=== PATIENT | female | born 1980 | race Caucasian/White ===

== ENCOUNTER 2022-10-02 16:14 | Emergency (ER) | payer OTHER ==
--- OUTSIDE RECORDS SUMMARY | 2022-10-02 16:17 | XMS REPORT | Continuity of Care Document ---
:1980 Author Organization [facility] t Address [address] [place] [address] Care Team Providers Name Role Phone Asked, No Pcp Primary Care Physician Unavailable Everett MCKAY, Brenda Gray Attending Clinician Payers Payer Name Policy Type Policy Number Effective Date Expiration Date S ource Problems This patient has no known problems. Allergies, Adverse Reactions, Alerts Allergy Allergy Status Severity Reaction(s) Onset Inactive Treating Comm ents Source Name Type Date Date Clinician Venom-Wa Propensi Active Anaphylaxis M ethodi sp ty to [address] adverse 00:00: Hospita reaction 00 l s to drug Social History Social Habit Start Date Stop Date Quantity Comments Source Gender identity 2022-07-30 Identifies as [facility] 08:22:[facility] female gender Hospital (finding) Sexual orientation 2022-07-30 [facility] 08:22[facility] Hospital History of tobacco Smokes tobacco [facility] use daily Hospital History of Social 2022-07-30 2022-07-[address] function 00:00:00 00:00:00 Hospital Alcohol Comment 2022-07-30 2022-07-30 Social Jewish 00:00:00 00:00:00 Hospital Cigarettes smoked 2022-07-30 2022-07-[address] current (pack per 00:00:00 00:00:00 Hospita l day) - Reported Tobacco use and 2022-07-30 2022-07-30 Smokeless tobacco [facility] exposure 00:00:00 00:00:00 non-user Hospital Alcohol intake 2022-07-30 2022-07-30 Current drinker [facility] 00:00:00 00:00:00 of [facility] (finding) Sex Assigned At [birth year] Jewish 00:00:00 00:00:00 Hospital Smoking Status Start Date Stop Date Source Smokes tobacco daily 2022-07-30 00:00:00 [facility] Medications Ordered Filled Start Stop Current Ordering Indication Dosage Frequency Signature Comments Components Source Medication Medication Date Date Medication? Clinician (SIG) Name Name lamoTRIgine Yes 150mg Q.5D Take 1.5 M ethodi (LaMICtal) 2-[address] 100 MG 13:59: (150 mg Hospita tablet 02 total) by l mouth 2 (two) times a day. lisdexamfet Yes 60mg QD Take 6 Meth louann amine 10 mg 2-[address] capsule 13:59: (60 mg Hospita 02 total) by l mouth daily. Max Daily Amount: 60 mg buprenorphi Yes 2mg [id number] Place 2 mg Methodi ne HCL -[id number] (SUBUTEX) 8 13:59: 3D tongue 3 Ho spita mg tablet, 02 (three) l sublingual times a day. lidocaine Yes Q.5D Insert 1 Meth louann HCl-hydroco [address] rtison ac 00:00: n into the Ho spita 3-0.5 % 00 rectum 2 l cream (two) times a day. ketoconazol 2022- No Q.5W Apply Meth louann e (Nizoral) 07-[address] 2 % shampoo 00:00: 05:59 2 (two) Ho spita 00 :00 times a l week for 7 days. Apply to damp skin, lather, leave on 5 minutes, and rinse Vital Signs Vital Name Observation Time Observation Value Comments Source Systolic blood 2022-07-30 13:21:38 156 mm[Hg] [facility] pressure Diastolic blood 2022-07-30 13:21:38 91 mm[Hg] [facility] pressure Heart rate 2022-07-30 13:21:38 91 /min [facility] Body temperature 2022-07-30 13:21:38 36.39 [facility] Respiratory rate 2022-07-30 13:21:38 18 /min [facility] Oxygen saturation in 2022-07-30 13:21:38 99 /min [facility] Arterial blood by Pulse oximetry Body height 2022-07-30 13:20:00 157.5 cm [facility] Body weight 2022-07-30 13:20:00 49.896 kg [facility] BMI 2022-07-30 13:20:00 20.12 kg/m2 [facility] Procedures Procedure Date / Time Performing Clinician Source Performed CT PELVIS W CONTRAST 2022-07-30 17:04:50 Rolan Bar [facility] HCG QUALITATIVE, SERUM 2022-07-30 15:09:00 Rolan Bar [facility] SCREEN COMPREHENSIVE METABOLIC 2022-07-30 15:09:00 Rolan Bar [facility] PANEL CBC WITH PLATELET AND 2022-07-30 15:09:00 Rolan Bar [facility] DIFFERENTIAL ESTIMATED GFR 2022-07-30 15:09:00 Rolan Bar [facility] ospital Plan of Care Planned Activity Planned Date Details Comments Source Future Scheduled 2022-09-08 COVID-19 VACCINE (#1) [facility] Test 02:03:33 [code = COVID-19 VACCINE (#1)] Future Scheduled 2022-09-08 Pneumococcal Vaccine: [facility] Test 02:03:33 Pediatrics (0 to 5 Years) and At-Risk Patients (6 to 64 Years) (1 - PCV) [code = Pneumococcal Vaccine: Pediatrics (0 to 5 Years) and At-Risk Patients (6 to 64 Years) (1 - PCV)] Future Scheduled 2022-09-08 Hepatitis C screening [facility] Test 02:03:33 (procedure) [code = 331814995] Future Scheduled 2022-09-08 Screening for [facility] Test 02:03:33 malignant neoplasm of cervix (procedure) [code = 196336698] Future Scheduled 2022-09-08 BREAST CANCER [facility] Test 02:03:33 SCREENING [code = BREAST CANCER SCREENING] Future Scheduled 2022-09-08 INFLUENZA VACCINE [facility] Test 02:03:33 [code = INFLUENZA VACCINE] Encounters Start End Encounter Admission Attending Care Care Encounter Source Date/Time Date/Time Type Type Clinicians Facility Department ID 2022-07-30 2022-07-30 Emergency Brittney [id number] Methodi 07:24:00 13:59:00 Brenda Gray [id number] [id number] Hospit a .[id number] l .8 2022-07-30 2022-07-[address] [facility] [id number] [address] [place] 00:00:00 00:00:[address] Results This patient has no known results.
--- NOTE | 2022-10-02 18:00 | RAD REPORT ---
EXAM DESCRIPTION: RAD - Wrist Left 3 View - 10/02/2022 5:54 pm CLINICAL HISTORY: Pain;Swelling Pain COMPARISON: <Comparisons> FINDINGS: No fracture or dislocation seen. No foreign body or other soft tissue abnormality. IMPRESSION: Negative examination.
[2022-10-02] MEDS ORDERED: KETOROLAC 30 MG/ML INJ ONE (18:07)
[2022-10-02] MEDS ORDERED: CYCLOBENZAPRINE 10 MG TAB ONE (18:07)
--- NOTE | 2022-10-02 18:11 | EDPHYS ---
Physician Documentation [facility] Name: Elena Simeon Age: 42 yrs Sex: Female : 1980 Arrival Date: 10/02/2022 Time: 16:14 Bed IW3 Private MD: ED Physician Werner Castillo HPI: 10/02 16:35 This 42 yrs old Female presents to ER via Ambulatory with complaints of Wrist Pain. jh7 16:35 The patient or guardian reports decreased range of motion, pain, swelling. jh7 16:35 The complaints affect the. The complaints affect the left wrist diffusely. Onset: The jh7 symptoms/episode began/occurred 2 week(s) ago, and became persistent. Patient reports that she injured her wrist 2 weeks ago while moving. Reports pain with range of motion and tenderness.. 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 - Social history:: Smoking status: Patient reports the use of cigarette tobacco products, smokes one-half pack cigarettes per day, Patient uses alcohol, occasionally. street drugs, marijuana. ROS: 16:35 Constitutional: Negative for fever, chills, and weight loss, Neck: Negative for injury, jh7 pain, and swelling, Cardiovascular: Negative for chest pain, palpitations, and edema, Respiratory: Negative for shortness of breath, cough, wheezing, and pleuritic chest pain, Back: Negative for injury and pain, Skin: Negative for injury, rash, and discoloration, Neuro: Negative for headache, weakness, numbness, tingling, and seizure. 16:35 MS/extremity: Positive for pain, swelling, tenderness, of the left wrist. 16:35 All other systems are negative. Exam: 16:35 Constitutional: This is a well developed, well nourished patient who is awake, alert, jh7 and in no acute distress. Head/Face: Normocephalic, atraumatic. Neck: Trachea midline, no thyromegaly or masses palpated, and no cervical lymphadenopathy. Supple, full range of motion without nuchal rigidity, or vertebral point tenderness. No Meningismus. Cardiovascular: Regular rate and rhythm with a normal S1 and S2. No gallops, murmurs, or rubs. Normal PMI, no JVD. No pulse deficits. Respiratory: Lungs have equal breath sounds bilaterally, clear to auscultation and percussion. No rales, rhonchi or wheezes noted. No increased work of breathing, no retractions or nasal flaring. Abdomen/GI: Soft, non-tender, with normal bowel sounds. No distension or tympany. No guarding or rebound. No evidence of tenderness throughout. Back: No spinal tenderness. No costovertebral tenderness. Full range of motion. Skin: Warm, dry with normal turgor. Normal color with no rashes, no lesions, and no evidence of cellulitis. Neuro: Awake and alert, GCS 15, oriented to person, place, time, and situation. Sensory grossly intact. Normal gait. 16:35 Musculoskeletal/extremity: ROM: limited active range of motion due to pain, in the left wrist, Circulation is intact in all extremities. Sensation intact. L wrist: Positive Sundar's test, tenderness over the radial styloid. Vital Signs: 16:32 BP 113 / 71; Pulse 90; Resp 17; Temp 98.1; Pulse Ox 100% ; Weight 52.16 kg; Height 5 ap3 ft. 2 in. ; Pain 7/10; 18:33 BP 118 / 76; Pulse 84; Resp 18; Pulse Ox 100% ; mb9 16:32 Body Mass Index 21.03 (52.16 kg, 157.48 cm) ap3 16:32 Pain Scale: Adult ap3 MDM: 16:17 Patient medically screened. [facility] 18:15 Differential diagnosis: contusion, tendonitis, sprain, de Quervain's tenosynovitis. [facility] Data reviewed: vital signs, nurses notes, radiologic studies, plain films. I considered the following discharge prescriptions or medication management in the emergency department Medications were administered in the Emergency Department. See MAR. Independent interpretation of the following test(s) in the Emergency Department X-Ray: My interpretation is No fractures or dislocations. Care significantly affected by the following chronic conditions: Hypertension. Counseling: I had a detailed discussion with the patient and/or guardian regarding: the historical points, exam findings, and any diagnostic results supporting the discharge/admit diagnosis, to return to the emergency department if symptoms worsen or persist or if there are any questions or concerns that arise at home. Response to treatment: the patient's symptoms have mildly improved after treatment. ED course: Patient brought wrist brace from home and was advised to wear it until symptoms improve. 10/02 16:43 Order name: XRAY Wrist LEFT 3 view; Complete Time: 18:09 jh Administered Medications: 18:05 Drug: Ketorolac IM 30 mg Route: IM; Site: left deltoid; mb9 18:05 Drug: Cyclobenzaprine PO 10 mg Route: PO; mb9 Disposition: 10/03 17:14 Co-signature as Attending Physician, Werner Castillo MD I reviewed the patient's care rn provided by the Advanced Practice Provider and agree with the diagnosis and treatment plan. Disposition Summary: 10/02/22 18:10 Discharge Ordered Location: Home [facility] Problem: new jh7 Symptoms: have improved jh7 Condition: Stable jh Diagnosis - Radial styloid tenosynovitis [de Quervain] [facility] Followup: [facility] - With: Private Physician - When: 2 - 3 days - Reason: Recheck today's complaints Discharge Instructions: - Discharge Summary Sheet [facility] - De Quervain's Tenosynovitis [facility] Forms: - Medication Reconciliation Form [facility] - Thank You Letter [facility] Prescriptions: - Zanaflex 4 mg Oral Tablet - take 1 tablet by ORAL route every 8 hours As needed; 20 tablet; Refills: 0, jh7 Product Selection Permitted - Medrol (Bernardino) 4 mg Oral Tablets, Dose Pack - take 1 tablet by ORAL route as directed - follow package instructions; 1 jh7 packet; Refills: 0, Product Selection Permitted Signatures: Dispatcher [employer] Werner Soliz MD MD rn Prokisch, Amanda, RN RN [email or web address] Natalya Stephens FNP FNP [facility] Kiersten Antoine RN RN mb9 Corrections: (The following items were deleted from the chart) 10/02 19:05 16:35 This 42 yrs old Female presents to ER via Ambulatory with complaints of Wrist jh7 Pain. [facility]
--- NOTE | 2022-10-02 18:11 | ER ---
Nurse's Notes [facility] Name: Elena Simeon Age: 42 yrs Sex: Female : 1980 Arrival Date: 10/02/2022 Time: 16:14 Bed IW3 Private MD: Diagnosis: Radial styloid tenosynovitis [de Quervain] Presentation: 10/02 16:32 Chief complaint: Patient states: she injured her left wrist approx 2 weeks ago when ap3 moving. patient states the pain has gotten worse over the last two weeks instead of better so she came to the ER for further evaluation. Coronavirus screen: At this time, the client does not indicate any symptoms associated with coronavirus-19. Ebola Screen: No symptoms or risks identified at this time. Initial Sepsis Screen: Does the patient meet any 2 criteria? No. Patient's initial sepsis screen is negative. Does the patient have a suspected source of infection? No. Patient's initial sepsis screen is negative. Risk Assessment: Do you want to hurt yourself or someone else? Patient reports no desire to harm self or others. Onset of symptoms was September 18, 2022. 16:32 Method Of Arrival: Ambulatory ap3 16:32 Acuity: EM 4 ap3 Triage Assessment: 16:37 General: Appears in no apparent distress. Behavior is calm, cooperative, appropriate ap3 for age. Pain: Complains of pain in left wrist Pain currently is 7 out of 10 on a pain scale. Pain began 2 weeks ago. Neuro: Level of Consciousness is awake, alert, obeys commands, Oriented to person, place, time, situation. Cardiovascular: Patient's skin is warm and dry. Respiratory: Airway is patent Respiratory effort is even, unlabored, Respiratory pattern is regular, symmetrical. Derm: Reports pain. 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 - Social history:: Smoking status: Patient reports the use of cigarette tobacco products, smokes one-half pack cigarettes per day, Patient uses alcohol, occasionally. street drugs, marijuana. Screenin:38 Abuse screen: Denies threats or abuse. Nutritional screening: No deficits noted. ap3 Tuberculosis screening: No symptoms or risk factors identified. Assessment: 18:33 Reassessment: Patient and/or family updated on plan of care and expected duration. Pain mb9 level reassessed. Patient is alert, oriented x 3, equal unlabored respirations, skin warm/dry/pink. Patient states feeling better. Patient states symptoms have improved. Vital Signs: 16:32 BP 113 / 71; Pulse 90; Resp 17; Temp 98.1; Pulse Ox 100% ; Weight 52.16 kg; Height 5 ap3 ft. 2 in. ; Pain 7/10; 18:33 BP 118 / 76; Pulse 84; Resp 18; Pulse Ox 100% ; mb9 16:32 Body Mass Index 21.03 (52.16 kg, 157.48 cm) ap3 16:32 Pain Scale: Adult ap3 ED Course: 16:17 Patient arrived in ED. rg4 16:17 Natalya Stephens FNP [facility] 7 16:17 Werner Castillo MD is Attending Physician. jh7 16:34 Triage completed. ap3 16:37 Arm band placed on right wrist. ap3 17:55 XRAY Wrist LEFT 3 view In Process Unspecified. EDPR 18:33 Kiersten Antoine, DERIC is Primary Nurse. mb9 18:33 No provider procedures requiring assistance completed. Patient did not have IV access mb9 during this emergency room visit. Administered Medications: 18:05 Drug: Ketorolac IM 30 mg Route: IM; Site: left deltoid; mb9 18:05 Drug: Cyclobenzaprine PO 10 mg Route: PO; mb9 Outcome: 18:10 Discharge ordered by . 7 18:33 Discharged to home ambulatory. mb9 18:33 Condition: stable 18:33 Discharge instructions given to patient, Instructed on discharge instructions, follow up and referral plans. Demonstrated understanding of instructions, follow-up care, medications, Prescriptions given X 2. 18:33 Patient left the ED. mb9 Signatures: Dispatcher [employer] EDPR Rachel Feliciano rg4 Noemy Higgins RN RN ap3 Natalya Stephens FNP ACCOUNTS RECEIVABLE SUPERVISOR 7 Breneman, Lilli, RN RN mb9
[2022-10-02 19:26] VITALS: TEMP 98.1; O2SAT 100
[2022-10-02 19:28] VITALS: BP 118/76
== END 2022-10-02 18:33 | disposition home or self-care (01) ==
LOC: ER 16:14
DX: M65.4 Radial styloid tenosynovitis [de Quervain] (principal)
CPT/HCPCS: 96372; 99284

== ENCOUNTER 2022-12-04 | Emergency (ER) | payer OTHER ==
--- OUTSIDE RECORDS SUMMARY | 2022-12-04 00:03 | XMS REPORT | Continuity of Care Document ---
:[address] [facility] t Address [address] [place] [address] Care Team Providers Name Role Phone Asked, No Pcp Primary Care Physician Unavailable Everett MCKAY, Fabiana Gray Attending Clinician Payers Payer Name Policy Type Policy Number Effective Date Expiration Date S ource Problems This patient has no known problems. Allergies, Adverse Reactions, Alerts Allergy Allergy Status Severity Reaction(s) Onset Inactive Treating Comm ents Source Name Type Date Date Clinician Venom-Wa Propensi Active Anaphylaxis M ethodi sp ty to 2-20 st adverse 00:00: Hospita reaction 00 l s to drug Social History Social Habit Start Date Stop Date Quantity Comments Source Gender identity 2022-07-30 Identifies as [facility] 08:22:52 female gender Hospital (finding) Sexual orientation 2022-07-30 [facility] 08:22:52 Hospital History of tobacco Cigarette Smoker [facility] use Hospital History of Social 2022-07-30 2022-07-[address] function 00:00:00 00:00:00 Hospital Alcohol Comment 2022-07-30 2022-07-30 Social [facility] 00:00:00 00:00:00 Hospital Cigarettes smoked 2022-07-30 2022-07-[address] current (pack per 00:00:00 00:00:00 Hospita l day) - Reported Alcohol intake 2022-07-30 2022-07-30 Current drinker [facility] 00:00:00 00:00:00 of alcohol Hospital (finding) Tobacco use and 2022-07-30 2022-07-30 Smokeless tobacco [facility] exposure 00:00:00 00:00:00 non-user Hospital Sex Assigned At [birth year] Mu-Ism 00:00:00 00:00:00 Hospital Smoking Status Start Date Stop Date Source Smokes tobacco daily 2022-07-30 00:00:00 [facility] Medications Ordered Filled Start Stop Current Ordering Indication Dosage Frequency Signature Comments Components Source Medication Medication Date Date Medication? Clinician (SIG) Name Name lamoTRIgine 3-0 Yes 150mg Q.5D Take 1.5 M ethodi (LaMICtal) 2-[address] 100 MG 13:59: (150 mg Hospita tablet 02 total) by l mouth 2 (two) times a day. lisdexamfet 2023-0 Yes 60mg QD Take 6 Meth louann amine 10 mg 2-[address] capsule 13:59: (60 mg Hospita 02 total) by l mouth daily. Max Daily Amount: 60 mg buprenorphi 2023-0 [id number] 2 mg Method[facility] ne HCL 2-[id number] (SUBUTEX) 8 13:59: 3D tongue 3 Ho spita mg tablet, 02 (three) l sublingual times a day. lamoTRIgine 3-0 Yes 150mg Q.5D Take 1.5 M ethodi (LaMICtal) 2-[address] 100 MG 13:59: (150 mg Hospita tablet 02 total) by l mouth 2 (two) times a day. lisdexamfet 2023-0 Yes 60mg QD Take 6 Meth louann amine 10 mg 2-[address] capsule 13:59: (60 mg Hospita 02 total) by l mouth daily. Max Daily Amount: 60 mg buprenorphi 2023-0 Yes [address]mg Q.[id number] Place 2 mg Method[facility] ne HCL 2-[id number] (SUBUTEX) 8 13:59: 3D tongue 3 Ho spita mg tablet, 02 (three) l sublingual times a day. lidocaine 3-0 Yes Q.5D Insert 1 Meth louann HCl-hydroco 2-[address] rtison ac 00:00: n into the Ho spita 3-0.5 % 00 rectum 2 l cream (two) times a day. lidocaine Yes Q.5D Insert 1 Meth louann HCl-hydroco 07-[address] rtison ac 00:00: n into the Ho spita 3-0.5 % 00 rectum 2 l cream (two) times a day. ketoconazol 2022- No Q.5W Apply Meth louann e (Nizoral) 07-[address] 2 % shampoo 00:00: 05:59 2 (two) Ho spita 00 :00 times a l week for 7 days. Apply to damp skin, lather, leave on 5 minutes, and rinse ketoconazol 2022- No Q.5W Apply Meth louann e (Nizoral) 07-[address] 2 % shampoo 00:00: 05:59 2 (two) Ho spita 00 :00 times a l week for 7 days. Apply to damp skin, lather, leave on 5 minutes, and rinse Vital Signs Vital Name Observation Time Observation Value Comments Source Diastolic blood 2022-07-30 13:21:38 91 mm[Hg] [facility] pressure Heart rate 2022-07-30 13:21:38 91 /min [facility] Body temperature 2022-07-30 13:21:38 36.39 Mary [facility] Respiratory rate 2022-07-30 13:21:38 18 /min [facility] Oxygen saturation in 2022-07-30 13:21:38 99 /min [facility] Arterial blood by Pulse oximetry Systolic blood 2022-07-30 13:21:38 156 mm[Hg] [facility] pressure Body height 2022-07-30 13:20:00 157.5 cm [facility] Body weight 2022-07-30 13:20:00 49.896 kg [facility] BMI 2022-07-30 13:20:00 20.12 kg/m2 [facility] Procedures Procedure Date / Time Performing Clinician Source Performed CT PELVIS W CONTRAST 2022-07-30 17:04:50 Rolan Bar [facility] HCG QUALITATIVE, SERUM 2022-07-30 15:09:00 Rolan Bar [facility] SCREEN COMPREHENSIVE METABOLIC 2022-07-30 15:09:00 Rolan Bar [facility] PANEL CBC WITH PLATELET AND 2022-07-30 15:09:00 Rolan Bar [facility] DIFFERENTIAL ESTIMATED GFR 2022-07-30 15:09:00 Rolan Bar [facility] ospital Plan of Care Planned Activity Planned Date Details Comments Source Future Scheduled 2022-11-23 COVID-19 VACCINE (#1) [facility] Test 17:36:01 [code = COVID-19 VACCINE (#1)] Future Scheduled 2022-11-23 Pneumococcal Vaccine: [facility] Test 17:36:01 Pediatrics (0 to 5 Years) and At-Risk Patients (6 to 64 Years) (1 - PCV) [code = Pneumococcal Vaccine: Pediatrics (0 to 5 Years) and At-Risk Patients (6 to 64 Years) (1 - PCV)] Future Scheduled 2022-11-23 Hepatitis C screening [facility] Test 17:36:01 (procedure) [code = [id number]] Future Scheduled 2022-11-23 Screening for [facility] Test 17:36:01 malignant neoplasm of cervix (procedure) [code = [id number]] Future Scheduled 2022-11-23 BREAST CANCER [facility] Test 17:36:01 SCREENING [code = BREAST CANCER SCREENING] Future Scheduled 2022-11-23 INFLUENZA VACCINE [facility] Test 17:36:01 [code = INFLUENZA VACCINE] Future Scheduled 2022-09-08 COVID-19 VACCINE (#1) [facility] Test 02:03:33 [code = COVID-19 VACCINE (#1)] Future Scheduled 2022-09-08 Pneumococcal Vaccine: [facility] Test 02:03:33 Pediatrics (0 to 5 Years) and At-Risk Patients (6 to 64 Years) (1 - PCV) [code = Pneumococcal Vaccine: Pediatrics (0 to 5 Years) and At-Risk Patients (6 to 64 Years) (1 - PCV)] Future Scheduled 2022-09-08 Hepatitis C screening [facility] Test 02:03:33 (procedure) [code = [id number]] Future Scheduled 2022-09-08 Screening for [facility] Test 02:03:33 malignant neoplasm of cervix (procedure) [code = 392374064] Future Scheduled 2022-09-08 BREAST CANCER [facility] Test 02:03:33 SCREENING [code = BREAST CANCER SCREENING] Future Scheduled 2022-09-08 INFLUENZA VACCINE [facility] Test 02:03:33 [code = INFLUENZA VACCINE] Encounters Start End Encounter Admission Attending Care Care Encounter Source Date/Time Date/Time Type Type Clinicians Facility Department ID 2022-07-30 2022-07-30 Emergency [place], [id number] [id number] Methodi 07:24:00 13:59:00 Robbirandall Gray [id number] 3.430.2.7 Hospit a .3.009552 l .8 2022-07-30 2022-07-30 Emergency Eve[place], 1.2.840.1 [id number] [facility] 07:24:00 13:59:00 Fabiana Gray [id number] 3.430.2.7 Hospit a .[id number] l .8 Results This patient has no known results.
[2022-12-04] MEDS ORDERED: LEVETIRACETAM 500 MG/5 ML VIAL IV ONE (00:38)
[2022-12-04] MEDS ORDERED: NA CHLORIDE 0.9% 250 ML ONE (00:38)
[2022-12-04 01:06] LABS: Protime INR 0.84
[2022-12-04 01:17] LABS: Absolute Lymphocytes (CBC) 3.2 K/uL (0.7-4.9); Hematocrit 37.7 % (36.0-45.0); Lymphocytes % 38.7 % (15.3-44.8); MCV 89.6 fL (80-100); MPV 7.1 fL (7.6-11.3); RBC Red Blood Cell Count 4.21 M/uL (3.86-4.86)
[2022-12-04 01:28] LABS: ALT/SGPT 23 U/L (13-56); AST/SGOT 19 U/L (15-37); Albumin 3.5 g/dL (3.4-5.0); Alkaline Phosphatase 83 U/L (45-117); BUN Blood Urea Nitrogen 19 mg/dL (7-18); Bicarbonate 23 mEq/L (21-32); Bilirubin Total 0.2 mg/dL (0.2-1.0); Glomerular Filtration Rate 110 ml/min (=/>90); Glucose Level 93 mg/dL (74-106); Potassium 3.5 mEq/L (3.5-5.1); Protein, Total 6.8 g/dL (6.4-8.2); Sodium Level 143 mEq/L (136-145)
[2022-12-04 01:29] LABS: Bilirubin Direct < 0.1 mg/dL (0-0.2); Bilirubin Indirect, Calculated ND mg/dL (0.2-0.8)
--- NOTE | 2022-12-04 02:46 | ER ---
Nurse's Notes [facility] Name: Elena Simeon Age: 42 yrs Sex: Female : 1980 Arrival Date: 12/04/2022 Time: 00:00 Bed 16 Private MD: Diagnosis: Other seizures;Alcohol use, unspecified Presentation: 12/04 00:04 Chief complaint: EMS states: PT WAS FOUND BY FATHER [place] THE [facility] [place] rv SEIZURE. WAS ATTENDED EARLIER TODAY FOR SAME REASON AND REFUSED TO BE BROUGHT TO ED. WAS GIVEN 5MG VERSED INTRANASAL. POST ICTAL UPON ARRIVAL AT THE ED. Coronavirus screen: Vaccine status:. Ebola Screen: Patient negative for fever greater than or equal to 101.5 degrees Fahrenheit, and additional compatible Ebola Virus Disease symptoms Patient denies exposure to infectious person. Patient denies travel to an Ebola-affected area in the 21 days before illness onset. Initial Sepsis Screen: Does the patient meet any 2 criteria? No. Patient's initial sepsis screen is negative. Does the patient have a suspected source of infection? No. Patient's initial sepsis screen is negative. Risk Assessment: Do you want to hurt yourself or someone else? Unable to obtain. Onset of symptoms was December 04, 2022. 00:04 Method Of Arrival: EMS: [facility] rv 00:04 Acuity: EM 2 rv Triage Assessment: 00:06 General: Appears unkempt, Behavior is drowsy. Pain: Denies pain. Neuro: Level of rv Consciousness is confused, lethargic. Cardiovascular: Capillary refill < 3 seconds Rhythm is sinus rhythm. Respiratory: Airway is patent Respiratory effort is even, unlabored. Derm: Skin is intact. Historical: - Allergies: 00:06 Bees; rv - Home Meds: 00:06 Dilantin Oral [Active]; Metoprolol Tartrate Oral [Active]; Suboxone [Active]; rv - PMHx: 00:06 Hypertensive disorder; Seizure; rv - Immunization history:: Adult Immunizations unknown. - Social history:: Smoking status: unknown. Screenin:08 [facility] ED Fall Risk Assessment (Adult) History of falling in the last 3 months, rv including since admission Yes- fall prone (multiple falls) (3 pts) Confusion or Disorientation Yes (5 pts) Intoxicated or Sedated Yes (3 pts) Impaired Gait Yes (1 pt) Mobility Assist Device Used No (0 pt) Altered Elimination No (0 pt) Score/Fall Risk Level 3 or more points = High Risk Oriented to surroundings, Maintained a safe environment, Educated pt \T\ family on fall prevention, incl call for assistance when getting out of bed, Assessed \T\ reinforced patient's understanding of fall precautions, Provided non-skid footwear, Hourly rounding (assess needs \T\ fall precautionary measures) done, Used ambulatory aids as needed (educated on \T\ assisted with), Used gait belt as appropriate Implemented a Fall Risk Plan of Care, Apply high fall risk patient identification: yellow non skid footwear/ fall signage, Placed fall mat w/ non beveled edge next to bed, Activated bed/chair alarm, Remained w/in arm's length of patient and in sight while toileting, Offered frequent toileting (1:1 observation), Remained with patient while ambulating, Utilized family, sitter, or virtual running rigger as indicated. Abuse screen: Denies threats or abuse. Denies injuries from another. Nutritional screening: No deficits noted. Tuberculosis screening: No symptoms or risk factors identified. Vital Signs: 00:04 BP 103 / 66; Pulse 86; Resp 17; Temp 98.1; Pulse Ox 96% ; Weight 68.04 kg; Height 5 ft. rv 7 in. ; 00:04 Body Mass Index 23.49 (68.04 kg, 170.18 cm) rv ED Course: 00:04 Patient arrived in ED. rv 00:04 Jesus Christianson PA is PHCP. cp 00:04 Jesus Mendoza MD is Attending Physician. cp 00:06 Triage completed. rv 00:07 Arm band placed on right wrist. rv 00:08 Patient has correct armband on for positive identification. Placed in gown. Bed in low rv position. Call light in reach. Side rails up X2. Seizure precautions initiated. Client placed on continuous cardiac and pulse oximetry monitoring. NIBP monitoring applied. property assessment monitor on. 00:08 No provider procedures requiring assistance completed. rv 01:00 Inserted saline lock: 20 gauge in right forearm, using aseptic technique. Blood rv collected. 01:17 Jeet Claros, DERIC is Primary Nurse. rv 02:04 CT Head C Spine In Process Unspecified. EDMS 02:45 Titus Mejia MD is Referral Physician. cp 02:58 IV discontinued, intact, bleeding controlled, No redness/swelling at site. Pressure rv dressing applied. Administered Medications: 01:17 Drug: Keppra IV 1000 mg Route: IV; Rate: calculated rate; Site: right forearm; rv 02:57 Follow up: Response: No adverse reaction; IV Status: Completed infusion rv 02:57 Drug: Ketorolac IVP 15 mg Route: IVP; Site: right forearm; rv 02:57 Follow up: Response: Medication administered at discharge. rv 02:57 Drug: Acetaminophen PO 650 mg Route: PO; rv 02:57 Follow up: Response: Medication administered at discharge. rv Medication: 00:08 VIS not applicable for this client. rv Outcome: 02:45 Discharge ordered by . cp 02:57 Discharged to home ambulatory, with family. rv 02:57 Condition: good 02:57 Discharge instructions given to patient, Instructed on discharge instructions, follow up and referral plans. medication usage, Demonstrated understanding of instructions, follow-up care, medications, Prescriptions given X 1. 02:58 Patient left the ED. rv Signatures: Dispatcher [employer] EDNJ Jesus Christianson PA PA cp Vicente, Ronaldo, RN RN rv
--- NOTE | 2022-12-04 02:46 | EDPHYS ---
Physician Documentation [facility] Name: Elena Simeon Age: 42 yrs Sex: Female : 1980 Arrival Date: 12/04/2022 Time: 00:00 Bed 16 Private MD: ED Physician Jesus Mendoza HPI: 12/04 00:20 This 42 yrs old Female presents to ER via EMS with complaints of Seizure. cp 00:20 The patient presents with decreased responsiveness. Onset: The symptoms/episode cp began/occurred today. Possible causes: seizure, the patient has a known seizure history, reportedly noncompliant with seizure medications. 00:20 Associated signs and symptoms: Pertinent positives: agitation, confusion, Pertinent cp negatives: abdominal pain, chest pain. Current symptoms: In the emergency department the patient's symptoms have improved. Patient's baseline: Neuro: alert and fully oriented, Motor: no deficits, Ambulation: walks without assistance, Speech: normal. Patient given 5mg Versed by EMS prior to arrival. Historical: - Allergies: 00:06 Bees; rv - Home Meds: 00:06 Dilantin Oral [Active]; Metoprolol Tartrate Oral [Active]; Suboxone [Active]; rv - PMHx: 00:06 Hypertensive disorder; Seizure; rv - Immunization history:: Adult Immunizations unknown. - Social history:: Smoking status: unknown. ROS: 00:25 Constitutional: Negative for fever. cp 00:25 Cardiovascular: Negative for chest pain. cp 00:25 Respiratory: Negative for cough, wheezing. 00:25 Abdomen/GI: Negative for abdominal pain, vomiting, diarrhea, constipation. 00:25 Neuro: Positive for history of seizure. 00:25 All other systems are negative. Exam: 00:30 Constitutional: The patient appears non-diaphoretic, non-toxic, well developed, well cp nourished. 00:30 Head/Face: Normocephalic, atraumatic. cp 00:30 Eyes: Periorbital structures: appear normal, Pupils: equal, round, and reactive to light and accomodation, Conjunctiva: normal, no exudate, no injection, Sclera: no appreciated abnormality, Lids and lashes: appear normal, bilaterally. 00:30 ENT: External ear(s): are unremarkable, Ear canal(s): are normal, clear, TM's: dullness, bilaterally, Nose: is normal, Mouth: Lips: moist, Oral mucosa: pink and intact, moist, Posterior pharynx: is normal, airway is patent, no erythema, no exudate. 00:30 Neck: C-spine: vertebral tenderness, is not appreciated, crepitus, is not appreciated, ROM/movement: Meningeal signs: are not present, nuchal rigidity, is not appreciated. 00:30 Chest/axilla: Inspection: normal. 00:30 Cardiovascular: Rate: normal, Rhythm: regular. 00:30 Respiratory: the patient does not display signs of respiratory distress, Respirations: normal, no use of accessory muscles, no retractions, labored breathing, is not present, Breath sounds: are clear throughout, no decreased breath sounds, no stridor, no wheezing. 00:30 Abdomen/GI: Inspection: abdomen appears normal, Palpation: abdomen is soft and non-tender, in all quadrants. 00:30 Musculoskeletal/extremity: Exam is negative for decreased range of motion, deformity, injury. 00:30 Neuro: Mentation: somnolent. 03:12 ECG was reviewed by the Attending Physician. cp Vital Signs: 00:04 BP 103 / 66; Pulse 86; Resp 17; Temp 98.1; Pulse Ox 96% ; Weight 68.04 kg; Height 5 ft. rv 7 in. ; 00:04 Body Mass Index 23.49 (68.04 kg, 170.18 cm) rv MDM: 00:05 Patient medically screened. cp 00:45 Differential Diagnosis: electrolyte abnormality, alcohol intoxication, overdose, cp seizure, sepsis, UTI, volume depletion. 02:45 Data reviewed: vital signs, nurses notes, lab test result(s), EKG. cp 02:45 Consideration of Admission/Observation Escalation of care including cp admission/observation considered. I considered the following discharge prescriptions or medication management in the emergency department Medications were administered in the Emergency Department. See MAR. Care significantly affected by the following chronic conditions: seizure disorder. Counseling: I had a detailed discussion with the patient and/or guardian regarding: the historical points, exam findings, and any diagnostic results supporting the discharge/admit diagnosis, lab results, the need for outpatient follow up, a neurologist, to return to the emergency department if symptoms worsen or persist or if there are any questions or concerns that arise at home. ED course: Patient alert times 3, ambulating w/o assistance and requesting discharge. 12/04 00:12 Order name: Acetaminophen; Complete Time: 02:30 cp 12/04 02:30 Interpretation: Reviewed. 12/04 00:12 Order name: Basic Metabolic Panel; Complete Time: 02:30 cp 12/04 02:30 Interpretation: Normal except: CL 112; BUN 19; CA 8.3. cp 12/04 00:12 Order name: CBC with Diff; Complete Time: 02:30 cp 12/04 02:30 Interpretation: Normal except: MPV 7.1; EOSINOPHIL % 5.8. cp 12/04 00:12 Order name: ETOH Level; Complete Time: 02:30 cp 12/04 02:31 Interpretation: Abnormal: ETOH 215. cp 12/04 00:12 Order name: Hepatic Function; Complete Time: 02:30 cp 12/04 00:12 Order name: PT-INR; Complete Time: 02:30 cp 12/04 00:12 Order name: Ptt, Activated; Complete Time: 02:30 cp 12/04 00:12 Order name: Salicylate; Complete Time: 02:30 cp 12/04 00:21 Order name: CT Head C Spine cp 12/04 00:12 Order name: EKG; Complete Time: 00:13 cp 12/04 00:12 Order name: EKG - Nurse/Tech; Complete Time: 00:27 cp 12/04 00:12 Order name: IV Saline Lock; Complete Time: 01:18 cp 12/04 00:12 Order name: Labs collected and sent; Complete Time: 01:18 cp EC:12 Rate is 82 beats/min. Rhythm is regular. [place] interval is normal. QRS interval is normal. cp QT interval is prolonged. T waves are Inverted in lead aVR. Interpreted by me. Reviewed by me. Administered Medications: 01:17 Drug: Keppra IV 1000 mg Route: IV; Rate: calculated rate; Site: right forearm; rv 02:57 Follow up: Response: No adverse reaction; IV Status: Completed infusion rv 02:57 Drug: Ketorolac IVP 15 mg Route: IVP; Site: right forearm; rv 02:57 Follow up: Response: Medication administered at discharge. rv 02:57 Drug: Acetaminophen PO 650 mg Route: PO; rv 02:57 Follow up: Response: Medication administered at discharge. rv Disposition Summary: 12/04/22 02:45 Discharge Ordered Location: Home cp Problem: an acute exacerbation cp Symptoms: have improved cp Condition: Stable cp Diagnosis - Other seizures cp - Alcohol use, unspecified cp Followup: cp - With: Titus Mejia MD - When: 2 - 3 days - Reason: seizure disorder Discharge Instructions: - Discharge Summary Sheet cp - Alcohol Intoxication cp - Seizure, Adult cp Forms: - Medication Reconciliation Form cp - Thank You Letter cp - Antibiotic Education cp - Prescription Opioid Use cp - [email or web address] cp Prescriptions: - Keppra 500 mg Oral Tablet - take 1 tablet by ORAL route every 12 hours; 30 tablet; Refills: 0, Product cp Selection Permitted Signatures: Dispatcher [employer] EDMS Jesus Christianson PA PA cp Vicente, Ronaldo RN RN rv Corrections: (The following items were deleted from the chart) 02:45 02:36 East ordered. cp kd3
[2022-12-04] MEDS ORDERED: ACETAMINOPHEN 325 MG TABLET ONE (02:59)
[2022-12-04] MEDS ORDERED: KETOROLAC 30 MG/ML INJ ONE (02:59)
[2022-12-04 03:16] VITALS: BP 103/66; TEMP 98.1; O2SAT 96
--- NOTE | 2022-12-04 20:37 | EKG ---
Test Date: 2022-12-04 Test Time: 00:15:50 Rehabilitation Worker: RV MEASUREMENT RESULTS: Intervals: Rate: 82 [place]: 180 QRSD: 98 QT: 420 QTc: 490 [place]: P: 78 AZ: 180 QRS: 93 T: 69 INTERPRETIVE STATEMENTS: Normal sinus rhythm Rightward axis Prolonged QT Abnormal ECG Compared to ECG 09/25/2022 19:26:09 Right-axis deviation now present T-wave abnormality no longer present Possible ischemia no longer present Electronically Signed On 12-04-22 20:32:54 CDT by Raheel Mcwilliams
--- NOTE | 2022-12-04 22:06 | RAD REPORT ---
EXAM DESCRIPTION: CT Head and Cervical Spine Without Intravenous Contrast CLINICAL HISTORY: The patient is 42 years old and is Female; SEIZURE TECHNIQUE: Axial computed tomography images of the head/brain and cervical spine without intravenous contrast. Sagittal and coronal reformatted images were created and reviewed. This CT exam was pe rformed using one or more of the following dose reduction techniques: automated exposure control, a djustment of the mA and/or kV according to patient size, and/or use of iterative reconstruction techn ique. COMPARISON: No relevant prior studies available. FINDINGS: Brain: Unremarkable. No hemorrhage. No significant white matter disease. No edema. Ventricles: Unremarkable. No ventriculomegaly. Skull: Maxillary sinus mucosal thickening. No acute fracture. Sinuses: Ethmoid sinus mucosal thickening. Mastoid air cells: Unremarkable as visualized. No mastoid effusion. Vertebrae: See below. Discs/spinal canal/neural foramina: Disc space narrowing with degenerative endplate changes at C5 -6. Moderate bilateral neural foraminal narrowing at C5-6. Soft tissues: Unremarkable. IMPRESSION: No acute intracranial abnormality. No acute findings in the cervical spine. Electronically signed by: Abner Loera MD 12/04/2022 2:23 AM CDT Due to temporary technical issues with the PACS/Fluency reporting system, reports are being signed by the in house radiologists without review as a courtesy to insure prompt reporting. The interpreting radiologist is fully responsible for the content of the report.
== END 2022-12-04 02:58 | disposition home or self-care (01) ==
LOC: ER
DX: G40.89 Other seizures (principal); F10.90 Alcohol use, unspecified, uncomplicated
CPT/HCPCS: 93005; 85025; 80048; 36415; 85610; 80076; 85730; 70450; 72125; 80143; 80179; 82077; J1953; J7050